=== PATIENT | female | born 1990 | race Caucasian/White ===

== ENCOUNTER → 2019-10-05 | Outpatient (CLI) | payer SELFPAY ==
[2019-10-07 20:11] LABS: HPV Reflexed? NOT INDICATED
== END | disposition home or self-care (01) ==
LOC: LABSPEC 10-06 08:28
PROVIDERS: Referring Provider Obstetrics & Gynecology; Visit Provider Obstetrics & Gynecology
DX: Z12.4 Encounter for screening for malignant neoplasm of cervix (principal)
CPT/HCPCS: 88175; G0145

== ENCOUNTER 2023-03-18 13:20 | Inpatient (IN) | payer SELFPAY, OTHER ==
[2023-03-18] VITALS (17 sets, daily range): BP systolic 93–147; BP diastolic 50–85; PULSE 66–96; RESP 16; TEMP 36.4–36.7; O2SAT 95–100; BMI 39.7
[2023-03-18 13:41] LABS: Absolute Lymphocyte Count 1.13 X10^3/uL (0.83-4.51); Absolute Neutrophil Count 12.9 X10^3/uL (2.0-7.7); Basophil# 0.03 X10^3/uL; Basophil% 0.2 % (0-1); Eosinophil# 0.02 X10^3/uL; Eosinophils% 0.1 % (0-5); Hematocrit 40.4 % (37-47); Hemoglobin 13.3 g/dL (12.0-15.0); Lymphocyte # 1.13 X10^3/ul (0.83-4.51); Lymphocyte % 7.4 % (19-41); Mean Corp Hgb Conc 32.9 g/dL (32-36); Mean Platelet Vol. 11.6 fl (6.2-12.0); Monocyte# 1.15 X10^3/uL; Monocyte% 7.5 % (0-10); NRBC Flagged by Analyzer 0 % (0-5); Neutrophil # 12.93 X10^3/uL (2.7-7.7); Neutrophil % 84.3 % (47-70); Platelet Count 203 K/mm3 (150-450); RBC Distribution Width CV 12.3 % (11.6-14.6); RBC Distribution Width SD 39.5 fl (35.1-43.9); Red Blood Count 4.59 M/mm3 (4.2-5.4); White Blood Count 15.3 K/mm3 (4.4-11.0)
[2023-03-18] MEDS: Cefazolin 3 GM in 0.9% Normal Saline (100mL Bag) 100 ML IV (14:08)
[2023-03-18] MEDS: Azithromycin 500 MG in Dextrose 5%-Water (250mL Bag) 250 ML 250 MG IV (14:18)
[2023-03-18 14:21] LABS: ALB/GLOB Ratio 0.8 RATIO (0.9-2.4); AST(SGOT) 18 U/L (15-37); Alanine Aminotransfer ALT/SGPT 23 U/L (13-56); Albumin, Serum 2.8 g/dL (3.2-5.0); Alkaline Phosphatase 129 U/L (45-117); Anion Gap 8 (5-15); BUN 6 mg/dL (7-18); BUN/Creat Ratio 8.7 RATIO (10-20); Chloride 106 mmol/L (98-107); Creatinine, Serum 0.69 mg/dL (0.55-1.02); EST Glomerular Filtration Rate 105 mL/min (>60); Est Glom Filt Rate - Afr Amer 127 mL/min (>60); Globulin 3.6 g/dL (2.2-4.2); Glucose 92 mg/dL (74-106); Potassium 3.7 mmol/L (3.5-5.1); Protein, Total 6.4 g/dL (6.4-8.2); Sodium Level 137 mmol/L (136-145)
[2023-03-18 14:38] LABS: Syphilis Antibodies Non-reactive
[2023-03-18 15:02] LABS: HIV - WCH Non-Reactive (Nonreactive); Hepatitis C Antibody Non-Reactive (Nonreactive)
--- NOTE | 2023-03-18 15:13 | HP.PCM.OB_ITS ---
HPI - General General Date of Admission: 03/18/23 Date of Service: 03/18/23 Chief Complaint: 40+ Week Intrauterine in Labor HPI Narrative SALVADOR METCALF, is a 32 F who presents from [facility] via squad due to oceanic sciences professor being unable to determine presenting part. There was a bulging bag of water. Patient presented about 11:00 this morning to the [facility] center and was noted to have a small amount of meconium stained fluid. Ultrasound suggested possible malpresentation of the head to the patient's left side but not breech. Dilation was uncertain as the oceanic sciences professor did not want to risk rupturing the bag of water. care has been uneventful except for history of infertility and the patient had surgery for endometriosis approximately a year ago in [place]. labs were normal with 1 hour PG being 135. Patient was noted to be positive for group B strep. Patient did not appear to be in advanced labor upon presentation. Maternal Data Information Final HUMBERTO: 03/15/23 Final HUMBERTO Source: US >20 weeks Gestational age: 40 weeks 3 days PFSH PFS Home Medications ascorbic acid (vitamin C) 500 mg tablet 1 g PO DAILY 03/18/23 [History Last Taken 03/18/23 09:00 1 g] cholecalciferol (vitamin D3) 250 mcg (10,000 unit) capsule 500 mcg PO DAILY 03/18/23 [History Last Taken 03/18/23 09:00 500 mcg] evening primrose 03/18/23 [History Last Taken 03/18/23 13:37] omega-3 fatty acids 1,000 mg capsule 1,000 mg PO DAILY 03/18/23 [History Last Taken 03/18/23 09:00 1,000 mg] [id number] 1 mg tablet 1 tab PO DAILY 03/18/23 [History Last Taken Unknown] vitamin B complex (B Complex-Vitamin B12 tablet) 1 tab PO DAILY 03/18/23 [History Last Taken 03/18/23 09:00 1 TAB] Allergy/AdvReac Type Severity Reaction Status Date / Time No Known Allergies Allergy Verified 03/18/23 13:25 no significant family history (Except history of larger babies) no surgical history (Except for laparoscopy for endometriosis about a year ago.) History 1 Elective abortions 0 Hx Para 0 Spontaneous abortions 0 Hx # Term Pregnancies 0 Ectopic pregnancies 0 Hx # Pregnancies 0 Multiple births 0 # of living children 0 ROS Constitutional Constitutional: Reports systems reviewed and no addt'l complaints, except as documented Eyes Eyes: Reports systems reviewed and no addt'l complaints, except as documented ENT HEENT: Reports systems reviewed and no addt'l complaints, except as documented Cardiovascular Cardiovascular: Reports systems reviewed and no addt'l complaints, except as documented Respiratory/Chest Respiratory/Chest: Reports systems reviewed and no addt'l complaints, except as documented Gastrointestinal Gastrointestinal: Reports systems reviewed and no addt'l complaints, except as documented Genitourinary Genitourinary: Reports systems reviewed and no addt'l complaints, except as documented Musculoskeletal Musculoskeletal: Reports systems reviewed and no addt'l complaints, except as documented Integumentary Integumentary: Reports systems reviewed and no addt'l complaints, except as documented Neurologic Neurologic: Reports systems reviewed and no addt'l complaints, except as documented Psychiatric Psychiatric: Reports systems reviewed and no addt'l complaints, except as documented Endocrine Endocrinology: Reports systems reviewed and no addt'l complaints, except as documented Hematologic/Lymphatic Hematologic/Lymphatic: Reports systems reviewed and no addt'l complaints, except as documented Allergic/Immunologic Allergic/Immunologic: Reports systems reviewed and no addt'l complaints, except as documented Vital Signs Vital Signs Vital Signs: 03/18/23 13:12 03/18/23 13:12 03/18/23 13:39 Pulse Rate 69 69 Blood Pressure 141/85 H BP Systolic 141 BP Diastolic 85 Pulse Ox 03/18/23 13:39 03/18/23 13:44 03/18/23 13:44 Pulse Rate 76 Blood Pressure BP Systolic BP Diastolic Pulse Ox 99 100 03/18/23 13:49 03/18/23 13:49 Pulse Rate 75 Blood Pressure BP Systolic BP Diastolic Pulse Ox 98 Weight Weight: 239 lb Body Mass Index (BMI) 39.7 Physical Exam Narrative Patient appears appropriate for gestational age. Cervix is 4-5, 85% effaced with bulging bag of fluid which when ruptured showed thick meconium stained fluid. Uncertain presenting part by examination possible face presentation. Const alert, oriented x3, no apparent distress and well nourished General Appearance: cooperative and comfortable Exam Limitations: no limitations Nutritional Appearance: overweight HEENT normocephalic and moist oral mucous membranes Face and Sinus: normal facial exam Teeth and Gingiva: other Other Details: Has dental plate Chest inspection of chest normal Resp normal respiratory effort Cardio regular rate and regular rhythm GI non-tender and non-distended GI Narrative: Appropriate for gestational age Neuro moves all extremities and no focal motor deficits Psych mental status grossly normal Labs Labs Labs: Blood Type A POSITIVE Antibody Screen NEGATIVE Hct 40.4 % (37-47) Hgb 13.3 g/dL (12.0-15.0) Syphilis Total Ab Non-reactive HIV 1&2 Antibody Non-Reactive (Nonreactive) Hepatitis C Antibody Non-Reactive (Nonreactive) Assessment & Plan (1) Labor and delivery affected by malposition and malpresentation: COMMENT: 40+ week intrauterine with likely malpresentation labor. PLAN: Plan for expectant management as with face presentation vaginal delivery may be possible. Monitor heart tones closely given unable to place internal monitor with thick meconium stained fluid. Discussed that section may be necessary due to failure to progress or increasing stress.
[2023-03-18] MEDS: Oxytocin 15 Units/NS 250ml 15 UNITS/250 ML IV.SOLN 83 UNITS IV (15:20)
--- NOTE | 2023-03-18 15:31 | OP.PCM_ITS ---
Report of Operation Date of Procedure: 03/18/23 Pre-Operative Diagnosis: Increasing Stress and Malpresentation Post-Operative Diagnosis: Increasing Stress and Face Presentation Surgery/Procedure Performed:: Primary Low Transverse Cervical Section Description of Surgical Findings:: Viable female with Apgars of 8/9 in face presentation with thick meconium stained fluid and cord around the neck x2 tight. Normal three-vessel meconium stained placenta. Surgeon: Pan Helton garden machinery mechanic: Carmen Freeman Type of Anesthesia: Spinal Anesthesiologist: Reji Pearson Specimen's removed: None Drains: Carcamo to straight drain Estimated Blood Loss (mL): 750 cc Fluids Replaced: Crystalloid Description of Procedure: Indication: This is a 32-year-old who presented from the [facility] in labor. She was transported via squad because of uncertain presentation. Upon arrival she was noted to have bulging membrane from the vagina and rupture showed thick meconium stained fluid. There was also suspicion of face presentation. Patient was monitored and over the next half hour was noted to have multiple and repetitive late decelerations. Given this and the thick meconium stained fluid it was decided proceed with emergency section. The patient has been counseled regarding the risk and indications of this procedure including the possibility of bleeding infection and injury to surrounding structures such as bowel bladder. All questions were answered. Procedure: Patient was taken to the operating room where after spinal anesthesia was placed, the patient was prepped and draped in usual sterile fashion and a Carcamo catheter was placed. The abdomen was entered through a Pfannenstiel incision and peritoneum was entered bluntly. After developing a bladder flap on the lower uterine segment a low transverse incision was made on the uterus and head was delivered onto the operative field the nose mouth and oropharynx were bulb suctioned. Subsequently a viable female infant was born with Apgars of 8/9. Thick meconium stained fluid was noted and the was noted to move all extremities vigorously on the operative field. The umbilical cord was doubly clamped and ligated and infant handed to the nursery personnel who were present for the delivery. Placenta was delivered and noted to be 3 vessels and normal with meconium staining. Uterus was exteriorized and remaining placental tissue was removed. The uterus was then closed in 2 layers first with running locked 0 Vicryl suture followed by a second imbricating layer with 0 Vicryl suture. 0 Vicryl suture was then used in a horizontal mattress interrupted fashion to affect final hemostasis of the uterine incision line. Normal fallopian tubes and ovaries were visualized and the uterus was returned to the pelvis. Hemostasis was noted and rectus abdominis muscles were reapproximated in the midline with interrupted Number 0 Vicryl suture in a horizontal mattress fashion. Fascia was closed with running Number 1 PDS Strata fix suture. Subcutaneous tissue was irrigated with copious amounts of saline solution and then closed with running 3-0 Vicryl suture in 2 layers. Skin was closed with 4- 0 monocryl suture in a running subcuticular fashion. A Mepilex dressing was placed across the incision. The patient tolerated the procedure well and was taken to the recovery room in satisfactory condition. Sponge, needle, and instrument counts were all reportedly correct. EBL was 750 cc cc. Azithromycin and 3 g of Ancef IV were given prior to the procedure. Spicemen to Pathology: None Complications: None Complications None Admit VTE Documentation VTE Mechan Device Prophylaxis: SCD's VTE Pharm Prophylaxis ordered?: Yes
[2023-03-18] MEDS: Ketorolac 30 MG/ML Syringe IV ×2 (16:06→22:12)
[2023-03-18] MEDS: Acetaminophen 500 MG Tablet 1000 MG PO ×2 (16:07→22:11)
[2023-03-18] MEDS: Lactated Ringers 1,000 ML 100 ML IV (18:39)
[2023-03-18] MEDS: oxyCODONE 5 MG Tablet PO (20:06)
[2023-03-18] MEDS: Cefazolin 1 GM/50 ML BAG IV (22:12)
[2023-03-19] VITALS (7 sets, daily range): BP systolic 113–132; BP diastolic 60–86; PULSE 18–91; RESP 16–77; TEMP 36.2–37.1; O2SAT 97–100
[2023-03-19] MEDS: Enoxaparin 40 MG/0.4 ML Syringe SC (02:52)
[2023-03-19] MEDS: Acetaminophen 500 MG Tablet 1000 MG PO ×4 (04:09→23:52)
[2023-03-19] MEDS: Ketorolac 30 MG/ML Syringe IV ×2 (04:09→10:19)
[2023-03-19] MEDS: 0.9% Saline Lock 10 ML Syringe IV ×2 (04:09→10:19)
[2023-03-19] MEDS: Cefazolin 1 GM/50 ML BAG IV (05:37)
[2023-03-19 07:20] LABS: Hematocrit 34.9 % (37-47); Mean Corp Hgb Conc 34.4 g/dL (32-36); Mean Corpuscular Hgb 29.8 pg (27.0-32.0); Mean Corpuscular Volume 86.6 fL (81-99); Mean Platelet Vol. 11.3 fl (6.2-12.0); Platelet Count 162 K/mm3 (150-450); RBC Distribution Width CV 12.5 % (11.6-14.6); RBC Distribution Width SD 39.6 fl (35.1-43.9); Red Blood Count 4.03 M/mm3 (4.2-5.4); White Blood Count 15.1 K/mm3 (4.4-11.0)
--- NOTE | 2023-03-19 09:50 | PN.OBGYN_ITS ---
Subjective Subjective Patient without complaints. Tolerating diet. Minimal vaginal bleeding reported. Pain well controlled. Objective Data Objective Data Wound is clean, dry, intact. Hemoglobin okay. Good urine output. Vital Signs: Vital Signs Temp Pulse Resp BP Pulse Ox O2 Del Method 97.1 F L 70 16 113/69 100 Room Air 03/19/23 07:50 03/19/23 08:15 03/19/23 07:50 03/19/23 07:50 03/19/23 08:15 03/19/23 08:15 Oxygen Delivery Method Room Air Weight: 239 lb Body Mass Index (BMI) 39.7 Intake & Output: Intake and Output for Last 24 Hours 03/17/23 03/18/23 03/19/23 23:59 23:59 23:59 Intake Total 670 / 670 885 / 885 Output Total 1500 / 1500 1700 / 1700 Balance -830 / -830 -815 / -815 Lab / Micro Data 03/19/23 07:05 03/18/23 13:25 Labs: Laboratory Results - last 24 hr 03/18/23 13:25: WBC 15.3 H, RBC 4.59, Hgb 13.3, Hct 40.4, MCV 88.0, MCH 29.0, MCHC 32.9, RDW Std Deviation 39.5, RDW Coeff of Sobeida 12.3, Plt Count 203, MPV 11.6, Immature Gran % (Auto) 0.500, Neut % (Auto) 84.3 H, Lymph % (Auto) 7.4 L, Osborne % (Auto) 7.5, Eos % (Auto) 0.1, Baso % (Auto) 0.2, Absolute Neuts (auto) 12.9 H, Absolute Lymphs (auto) 1.13, Nucleated RBC % 0, Sodium 137, Potassium 3.7, Chloride 106, Carbon Dioxide 23.0, Anion Gap 8, BUN 6 L, Creatinine 0.69, Estim Creat Clear Calc 106.30, Est GFR (MDRD) Af Amer 127, Est GFR (MDRD) Non-Af 105, BUN/Creatinine Ratio 8.7 L, Glucose 92, Calcium 9.0, Total Bilirubin 0.30, AST 18, ALT 23, Alkaline Phosphatase 129 H, Total Protein 6.4, Albumin 2.8 L, Globulin 3.6, Albumin/Globulin Ratio 0.8 L, Syphilis Total Ab Non-reactive, Hepatitis C Antibody Non-Reactive, HIV 1&2 Antibody Non-Reactive, Blood Type A POSITIVE, Antibody Screen NEGATIVE 03/19/23 07:05: WBC 15.1 H, RBC 4.03 L, Hgb 12.0, Hct 34.9 L, MCV 86.6, MCH 29.8, MCHC 34.4, RDW Std Deviation 39.6, RDW Coeff of Sobeida 12.5, Plt Count 162, MPV 11.3 Assessment & Plan (1) Labor and delivery affected by malposition and malpresentation: COMMENT: 40+ week intrauterine with likely malpresentation labor. (2) Delivery by section of full-term : COMMENT: Doing well postoperative day #1 status post primary section for increasing stress and face presentation. Continuing present care. Anticipate possible discharge home tomorrow.
[2023-03-19] MEDS: Senna/Docusate Sodium 1 Tablet PO (10:20)
--- NOTE | 2023-03-19 16:21 | NURSING ---
reviewed and agree with student charting that is used for educational and learning purposes.
[2023-03-19] MEDS: Ibuprofen 600 MG Tablet PO ×2 (17:18→23:52)
[2023-03-20 02:55] VITALS: BP 124/75; PULSE 70; RESP 18; TEMP 36.2; O2SAT 97
[2023-03-20] MEDS: Enoxaparin 40 MG/0.4 ML Syringe SC (03:01)
[2023-03-20] MEDS: Acetaminophen 500 MG Tablet 1000 MG PO ×3 (05:28→18:36)
[2023-03-20] MEDS: Ibuprofen 600 MG Tablet PO ×3 (05:29→18:35)
[2023-03-20 08:00] VITALS: BP 123/79; PULSE 79; RESP 16; TEMP 36.1
[2023-03-20] MEDS: Senna/Docusate Sodium 1 Tablet PO (11:27)
--- NOTE | 2023-03-20 12:18 | PN.OBGYN_ITS ---
Subjective Subjective Patient without complaints. Tolerating diet well. Positive flatus. Breast- feeding going well. Wants to go home tomorrow. Objective Data Objective Data Mepilex dressing clear. Minimal vaginal bleeding reported. Good urine output. Vital Signs: Vital Signs Temp Pulse Resp BP Pulse Ox O2 Del Method 97.2 F L 70 18 124/75 H 97 Room Air 03/20/23 02:55 03/20/23 02:55 03/20/23 02:55 03/20/23 02:55 03/20/23 02:55 03/20/23 02:55 Oxygen Delivery Method Room Air Weight: 239 lb Body Mass Index (BMI) 39.7 Intake & Output: Intake and Output for Last 24 Hours 03/18/23 03/19/23 03/20/23 23:59 23:59 23:59 Intake Total 670 / 670 885 / 885 Output Total 1500 / 1500 2250 / 2250 Balance -830 / -830 -1365 / -1365 Lab / Micro Data 03/19/23 07:05 03/18/23 13:25 Assessment & Plan (1) Delivery by section of full-term infant: COMMENT: Doing well postoperative day #2 status post primary section for increasing stress and face presentation. Anticipate released to home tomorrow. (2) Labor and delivery affected by malposition and malpresentation:
[2023-03-20 14:00] VITALS: BP 134/83; PULSE 78; RESP 18; TEMP 36.1
[2023-03-20 20:01] VITALS: BP 132/75; PULSE 76; RESP 17; TEMP 36.6; O2SAT 98
[2023-03-21] MEDS: Ibuprofen 600 MG Tablet PO ×3 (00:36→11:51)
[2023-03-21] MEDS: Acetaminophen 500 MG Tablet 1000 MG PO ×2 (00:37→06:36)
[2023-03-21 00:59] VITALS: BP 134/79; PULSE 72; RESP 17; TEMP 36.4; O2SAT 98
--- NOTE | 2023-03-21 08:20 | DS.PCM_ITS ---
Providers Date of Admission: 03/18/23 Reason For Visit: PRIMARY Diagnosis Discharge Diagnosis (1) Delivery by section of full-term : Status: Acute Code(s): O82 - Encounter for delivery without indication (2) Labor and delivery affected by malposition and malpresentation: Status: Acute Code(s): O32.9XX0 - Maternal care for malpresentation of fetus, unspecified, not applicable or unspecified (3) Maternal care for face, brow and chin presentation, delivered: Status: Acute Code(s): O32.3XX0 - Maternal care for face, brow and chin presentation, not applicable or unspecified Medications at Discharge Home Medications ascorbic acid (vitamin C) 500 mg tablet 1 g PO DAILY 03/18/23 cholecalciferol (vitamin D3) 250 mcg (10,000 unit) capsule 500 mcg PO DAILY 03/18/23 evening primrose 03/18/23 omega-3 fatty acids 1,000 mg capsule 1,000 mg PO DAILY 03/18/23 [id number] 1 mg tablet 1 tab PO DAILY 03/18/23 vitamin B complex (B Complex-Vitamin B12 tablet) 1 tab PO DAILY 03/18/23 Hospital Course Summary of Care Provided Hospital Course: Patient is a 32-year-old 1 para 0 who presented to labor and delivery from the [facility] The graphite mill operator was unable to determine presentation with membranes protruding through the vagina with meconium stained fluid present. Membranes were ruptured with thick meconium stained fluid noted. After monitoring the baby approximately 45 minutes and noting possible face presentation, it was decided to proceed with section due to multiple late decelerations. There were no complications and the surgery and postoperatively the patient did well demonstrating stable hemoglobin and bowel function on postoperative day #3 at which time was felt that she was ready for discharge. Patient was doing well on ibuprofen and Tylenol and declined narcotic pain medication for home. Weight / BMI Weight Weight: 239 lb Body Mass Index (BMI) 39.7 ABG / Lab / Microbiology Data 03/19/23 07:05 03/18/23 13:25 D/C Instructions Discharge Diet: No restrictions Discharge Activity: May Shower and May Take a Tub Bath May resume sexual activity in: 4-6 weeks Lifting Restricted to (Lbs): 25 Lifting Restrictions: No lifting more than 25 pounds for 6 weeks Additional Activity Instructions: Use Tylenol and/or ibuprofen as needed for pain. Call your doctor if your incision/area has: Sudden Increased Bleeding, Increased Pain/ Swelling, Increased Redness and Foul Smelling Discharge Call your doctor if you observe: Fever of 101 or Higher, Inability to urinate, Inability to have a bowel movement, Using more than 1 pad per hour and Uncontrolled pain Remove Dressing in: 4 days Cleanse incision/area with: Soap & Water Please Follow Up With: Emerald Jones MD When: 1 to 2 weeks Meaningful Use Info Meaningful Use Diagnoses (Choose all that apply): None applicable Discharge Plan Admission Admit Date/Time: 03/18/23 13:20 Primary Reason for Your Visit: Malpresentation of Baby, in Labor Attending Provider: Pan Helton Discharge Orders/Prescriptions Prescriptions: Continued lyrpavpv-[id number]-[id number] 1 mg tablet 1 tab PO DAILY ascorbic acid (vitamin C) 500 mg tablet 1 g PO DAILY cholecalciferol (vitamin D3) 250 mcg (10,000 unit) capsule 500 mcg PO DAILY vitamin B complex [B Complex-Vitamin B12] Tablet 1 tab PO DAILY omega-3 fatty acids 1,000 mg capsule 1,000 mg PO DAILY evening primrose Disposition Disposition (needs filled in before D/C Order can be placed): Home, Self Care
[2023-03-21 08:48] VITALS: BP 139/87; PULSE 81; RESP 16; TEMP 36.5; O2SAT 100
[2023-03-21] MEDS: Senna/Docusate Sodium 1 Tablet PO (10:10)
[2023-03-21] MEDS: Enoxaparin 40 MG/0.4 ML Syringe SC (10:11)
[2023-03-21 11:59] VITALS: RESP 16
== END 2023-03-21 12:00 | disposition home or self-care (01) | DRG 788 ==
LOC: WPOUT 13:25 → WP 13:25
PROVIDERS: Admitting Provider Obstetrics & Gynecology; Referring Provider Obstetrics & Gynecology; Visit Provider Obstetrics & Gynecology
DX: O32.9XX0 Maternal care for malpresentation of fetus, unspecified, not applicable or unspecified (principal); O69.1XX0 Labor and delivery complicated by cord around neck, with compression, not applicable or unspecified; O77.0 Labor and delivery complicated by meconium in amniotic fluid; O32.3XX0 Maternal care for face, brow and chin presentation, not applicable or unspecified; O99.824 Streptococcus B carrier state complicating childbirth; Z37.0 Single live birth; Z3A.40 40 weeks gestation of pregnancy
CPT/HCPCS: 59025; 59050; 80053; 85025; 85027; 86703; 86780; 86803; 86850; 86900; 86901; 99221; 99252; J7120; A4216; G0378; G0463; J2405